=== PATIENT | male | born 1955 | race Caucasian/White ===

== ENCOUNTER 2018-08-13 02:19 | Emergency (ER) | payer MEDICAID ==
[~2018-08-13] VITALS: Ht 182.9 cm; Wt 136.1 kg
[2018-08-13 02:21] VITALS: BP 132/106; Ht 182.9 cm; Wt 136.1 kg
== END 2018-08-13 06:37 | disposition expired ==
LOC: ED 02:19
DX: I46.9 Cardiac arrest, cause unspecified (principal)
CPT/HCPCS: J7030